=== PATIENT | male | born 2000 | race American Indian/Alaskan Native ===

== ENCOUNTER 2022-01-10 12:25 | Emergency (ER) | payer MEDICAID ==
[2022-01-10 12:47] VITALS: BP 120/72
[2022-01-10] MEDS ORDERED: IBUPROFEN 800 MG TAB PO STA (17:03)
[2022-01-10] MEDS ORDERED: ACETAMINOPHEN 500 MG TAB PO STA (17:03)
--- NOTE | 2022-01-10 17:06 | Emergency Department Report ---
ED General Adult HPI - General Chief complaint: Dental/Oral Stated complaint: JAW PAIN Time Seen by Provider: 01/10/22 16:37 Source: patient Mode of arrival: Ambulatory Limitations: No Limitations - History of Present Illness Initial comments: 21-year-old -[place] male patient presents with complaints of right jaw pain and swelling x3 days. He denies any injury or dental pain or ear pain. No difficulty swallowing or fever. He rates his pain as 8/10 in severity. He has not tried any OTC medication for his symptoms -: Sudden Radiation: non-radiation - Related Data Previous Rx's Medication Instructions Recorded Last Taken Type Acetaminophen/Codeine [Tylenol 1 tab PO Q8H PRN #8 tab 01/10/22 Unknown Rx /Codeine # 3 tab] Clindamycin [Clindamycin CAP] 300 mg PO Q6H 10 Days #40 cap 01/10/22 Unknown Rx Ibuprofen [Motrin 800 MG tab] 800 mg PO Q8HR PRN #20 tablet 01/10/22 Unknown Rx Allergies Allergy/AdvReac Type Severity Reaction Status Date / Time No Known Allergies Allergy Unverified 01/10/22 12:46 ED Review of Systems ROS: Stated complaint: JAW PAIN Other details as noted in HPI Constitutional: denies: chills, fever, malaise ENT: denies: throat pain Respiratory: denies: cough, shortness of breath Cardiovascular: denies: chest pain Gastrointestinal: denies: nausea, vomiting ED Past Medical Hx - Medications Home Medications: Home Medications Medication Instructions Recorded Confirmed Last Taken Type Acetaminophen/Codeine [Tylenol 1 tab PO Q8H PRN #8 tab 01/10/22 Unknown Rx /Codeine # 3 tab] Clindamycin [Clindamycin CAP] 300 mg PO Q6H 10 Days #40 cap 01/10/22 Unknown Rx Ibuprofen [Motrin 800 MG tab] 800 mg PO Q8HR PRN #20 tablet 01/10/22 Unknown Rx ED Physical Exam - General Limitations: No Limitations General appearance: alert, in no apparent distress - Head Head exam: Present: atraumatic, normocephalic - Expanded Head Exam Expanded 1 - Small nodular tender swelling noted without overlying erythema or obvious fluctuance noted; lymphadenopathy versus parotitis - Eye Eye exam: Present: normal appearance. Absent: scleral icterus - ENT ENT exam: Present: normal orophraynx. Absent: other (No difficulty opening or closing jaw noted) - Neck Neck exam: Present: normal inspection, full ROM - Respiratory Respiratory exam: Absent: respiratory distress - Cardiovascular Cardiovascular Exam: Present: regular rate - Psychiatric Psychiatric exam: Present: normal affect, normal mood - Skin Skin exam: Present: warm, dry, intact, normal color. Absent: rash ED Course Vital Signs 01/10/22 12:47 Temperature 98.0 F Pulse Rate 64 Respiratory 18 Rate Blood Pressure 120/72 O2 Sat by Pulse 100 Oximetry ED Medical Decision Making - Medical Decision Making 21-year-old -[place] male patient presents with complaints of right jaw pain and swelling x3 days. He denies any injury or dental pain or ear pain. No difficulty swallowing or fever. He rates his pain as 8/10 in severity. He has not tried any OTC medication for his symptoms Parotitis versus lymphadenopathy. Discussed sour candy use, warm compress, and completion of antibiotics. Patient to follow-up with her primary care doctor within 1 week for reevaluation. Discussed in detail signs and symptoms that should prompt immediate return to the ED with patient verbalized understanding Critical care attestation.: If time is entered above; I have spent that time in minutes in the direct care of this critically ill patient, excluding procedure time. ED Disposition Clinical Impression: Right facial swelling Disposition: 01 HOME / SELF CARE / HOMELESS Is pt being admited?: No Condition: Stable Instructions: Lymphadenopathy, Parotitis Prescriptions: Clindamycin [Clindamycin CAP] 300 mg PO Q6H 10 Days #40 cap Ibuprofen [Motrin 800 MG tab] 800 mg PO Q8HR PRN #20 tablet PRN Reason: Pain, Moderate (4-6) Acetaminophen/Codeine [Tylenol /Codeine # 3 tab] 1 tab PO Q8H PRN #8 tab PRN Reason: Pain , Severe (7-10) Referrals: BHUMIKA RICE MD [Staff Physician] - 3-5 Days [facility] [Provider Group] - 3-5 Days
== END 2022-01-10 18:58 ==
LOC: EDBD → ED 12:25
DX: R22.0 Localized swelling, mass and lump, head (principal)
CPT/HCPCS: 99282